=== PATIENT | male | born 1995 | race Two or more races ===

== ENCOUNTER 2021-05-01 13:51 | Emergency (ER) | payer MEDICAID, SELFPAY ==
[2021-05-01 14:41] VITALS: BP 104/78; PULSE 71; RESP 16; TEMP 36.8; O2SAT 98; BMI 19.6
[2021-05-01 15:01] LABS: IDNOW Serial# 9DD0AD1C
[2021-05-01 15:02] LABS: COVID-19 Test Positive (Negative)
--- NOTE | 2021-05-01 15:20 | ED.URI ---
HPI - URI/Sore Throat General Chief Complaint: General Medical Stated Complaint: +COVID home test Time Seen by Provider: 05/01/21 15:13 Source: patient and family Mode of arrival: ambulatory Limitations: no limitations History of Present Illness HPI Narrative: 26-year-old male presenting with URI symptoms for the past 2 days worse today. Reports that he recently traveled to [place]. Mother has similar symptoms. He is not vaccinated to COVID. Denies any other symptoms other than what is listed below. MD elicited complaint: cough and sore throat Onset (ago): day(s) (2) Consistency: constant and progressively worsening Severity: mild Description of mucous: clear, watery and yellow Able to tolerate fluids by mouth: Yes Exacerbating factors: swallowing Relieving factors: nothing Context: sick contacts (Mother has similar symptoms) Associated symptoms: chills, myalgias, headache, rhinorrhea, nasal congestion, sore throat and cough Treatments prior to arrival: none Related Data Previous Rx's Medication Instructions Recorded azithromycin 250 mg tablet See Rx Instructions .ROUTE 05/01/21 .COMPLEX #6 tab Allergies Allergy/AdvReac Type Severity Reaction Status Date / Time No Known Allergies Allergy Verified 05/01/21 15:24 Review of Systems Review of Systems: Constitutional : Positive chills/fatigue/malaise No Weight loss, No Fever, No Night Sweats ENT/Mouth : Positive sore throat/rhinorrhea/nasal congestion No Hearing loss, No Ear Pain, No Sinus Pain, No Hoarseness, No Swallowing Difficulty Eyes: No Eye Pain, No Swelling, No Redness, No Foreign Body, No Discharge, No Vision Changes Cardiovascular : No Chest Pain, No SOB, No Dyspnea on Exertion, No Orthopnea, No Edema, No Palpitations Respiratory : Positive Cough, No Sputum, No Wheezing, No Smoke Exposure, No Dyspnea Gastrointestinal : No Nausea, No Vomiting, No Diarrhea, No Constipation, No abdominal Pain, No Hematochezia, No Melena Genitourinary : no irregular bleeding, No Dysuria, No Urinary Frequency, No Hematuria, No Urinary Incontinence, No Urgency, No Flank Pain, No Urinary Flow Changes, No Hesitancy Musculoskeletal : No joint pain, positive Myalgias, No Joint Swelling Skin : No Skin Lesions, No rash Neuro : No Weakness, No Numbness, No Paresthesias, No Loss of Consciousness, No Dizziness, No Headache Psych : No Anxiety/Panic, No Depression, No SI/HI/AH/VH, No Social Issues, Heme/Lymph: No Bruising, No Bleeding,No Lymphadenopathy Endocrine : No Polyuria, No Polydipsia, No Temperature Intolerance Yes all other systems are reviewed and are negative [facility] Past Medical History Attestation statement: The following information was validated with the patient. Medical History No known health problems Social History Social History Advance Directives: No Physical Exam Vital Signs: Vital Signs: Last Vital Signs Temp 98.3 F 05/01/21 14:41 Pulse 71 05/01/21 14:41 Resp 16 05/01/21 14:41 BP 104/78 05/01/21 14:41 Pulse Ox 98 05/01/21 14:41 BMI result Body Mass Index 19.6 vital signs have been reviewed as normal and appeared to be correct. Blood pressure normal. Heart rate normal. Respiration rate normal. Temperature normal. Oxygen saturation normal. Appearance: Alert. Oriented X3. No acute distress. Head: Normal external exam. Normocephalic. Atraumatic. Eyes: PERRLA. EOMI. Conjunctiva and sclera normal. Eyelids normal. ENT: EAC normal. TM's Normal. Pharynx normal. Uvula midline. Moist mucous membranes. No trismus noted. No drooling noted. No muffled voice noted. Neck: Normal inspection. Neck supple. FROM. No adenopathy. Thyroid Normal. No meningeal signs. No neck mass noted. CVS: Normal heart rate and rhythm. Heart sound normal. Pulses normal throughout. No murmurs/rales/gallops. Respiratory: No respiratory distress. Painless inspiration. Breath sounds normal. No wheezes/rales/rhonchi noted. Chest nontender. No accessory muscle usage noted or decreased air movement noted. Back: Full range of motion noted. No rashes/lesion/induration/fluctuance or signs of infection noted. Skin: Skin warm and dry. Normal skin color. Normal skin turgor. No rashes/lesions/lacerations noted. Extremities:Extremities exhibit normal range of motion. Extremities nontender. Neuro: Oriented X 3. No motor deficit. No sensory deficit. Reflexes normal. Normal steady gait. No focal neuro deficits noted. Vascular: + radial pulses/+ 2 distal pedal pulses/+2 dorsalis pedis b/l. Normal cap refill. No cyanosis noted to upper extremity nails and lower extremity toes nails. Course Course Course Narrative: Patient positive for COVID. Will DC home with symptomatic treatment instructions to self isolate per CDC guidelines and to return if any new or worsening symptoms. Patient understands agrees with this plan. MDM - URI/Sore Throat Medical Records Attestation: I reviewed the patient's medical records. Lab Data Attestation: I reviewed the patient's lab results. Labs: Lab Results 05/01/21 Range/Units 14:44 COVID-19 ([facility]) Positive A (Negative) COVID-19 Clin Com See Note Discharge Plan Discharge Clinical Impression: COVID-19 Patient Disposition: Home, Self-Care Instructions: COVID-19 (Coronavirus Disease 2019) (ED) Additional Instructions: Patient positive for COVID. Will DC home with symptomatic treatment instructions to self isolate per CDC guidelines and to return if any new or worsening symptoms. Patient understands agrees with this plan. Prescriptions: New azithromycin 250 mg tablet See Rx Instructions .ROUTE .COMPLEX Qty: 6 RF: 0 Referrals: ED Physician,Generic [Physician] - 2 days (Your PCP) Stand Alone Forms: Work/School Release Print Language: Citizen Of [place]
== END 2021-05-01 16:06 | disposition home or self-care (01) ==
PROVIDERS: Emergency Provider Emergency Medicine
DX: U07.1 COVID-19 (principal)
CPT/HCPCS: 87635; 99282; 99283

== ENCOUNTER 2021-07-05 13:12 | Emergency (ER) | payer MEDICAID, SELFPAY ==
[2021-07-05 13:26] VITALS: BP 135/87; PULSE 95; RESP 17; TEMP 36.9; O2SAT 99; BMI 19.6
--- NOTE | 2021-07-05 13:42 | ED_ITS ---
HPI - Extremity Problem General Chief complaint: Extremity Injury, Upper Stated complaint: r hand inj at work Time Seen by Provider: 07/05/21 13:42 History of Present Illness HPI Narrative: Patient complains of pain blistering and redness to right 2nd and 3rd fingers after an injury at work last night when a nitrogen gas line came off and his gloved hand was coated with nitrogen gas and he felt like it had frozen and then it became pale for 2 hours and then returned to basically normal color He woke this morning with pain in the hand mostly in the 2nd and 3rd fingers and noticed some small blisters and redness and comes to the ER to be checked He denies any other injury Related Data Previous Rx's Medication Instructions Recorded azithromycin 250 mg tablet See Rx Instructions .ROUTE 05/01/21 .COMPLEX #6 tab acetaminophen 500 mg tablet 1,000 mg PO QID PRN #30 tab 07/05/21 ibuprofen 600 mg tablet 600 mg PO Q6H PRN #20 tab 07/05/21 oxycodone 5 mg tablet 5 mg PO Q6H PRN #20 tab 07/05/21 Allergies Allergy/AdvReac Type Severity Reaction Status Date / Time No Known Allergies Allergy Verified 05/01/21 15:24 Review of Systems Review of Systems: Positive for right 2nd and 3rd finger pain redness and blistering Negatives are no fever no chills no dizziness no weakness no headache no neck pain no chest pain no shortness of breath no difficulty breathing no weakness Yes all other systems are reviewed and are negative [facility] Past Medical History Source: nursing notes reviewed Medical History No known health problems Social History Social History Advance Directives: Yes Advance Directives Information Provided: Yes Advance Directives on File: No Physical Exam Vital Signs: Vital Signs: Last Vital Signs Temp 98.4 F 07/05/21 13:26 Pulse 95 07/05/21 13:26 Resp 17 07/05/21 13:26 BP 135/87 07/05/21 13:26 Pulse Ox 99 07/05/21 13:26 BMI result Body Mass Index 19.6 General appearance is no acute distress Head is normocephalic atraumatic Neck is supple Respiratory no distress The right hand middle and index fingers had some redness and purple on the sides of the fingers and on the distal finger, there was decreased sensation in fingertips of both 2nd and 3rd fingers, there was some limit mild limit on range of motion on flexion in 2nd and 3rd fingers due to pain There were small blisters on both fingers, no surrounding erythema no black areas Neuro the patient could feel when I touched his fingertips on the 2nd and 3rd fingers but felt was very decreased from normal compared to other fingers, motor was normal Course Course Course Narrative: Patient with frostbite on 2nd and 3rd fingers from exposure to a nitrogen gas which froze them at work when a hose broke I called Dr. coyle burn specialist at [facility] and described the wounds as well as sent her pictures and also described the decreased sensation She advised that this is likely to get better and does not need any acute treatment or transfer now She will follow virtually with the patient by phone next week, I did call [facility] was said they could see him early in the week for a wound check and I did advise the patient for any change or worse to come to the ER any time Dressing with antibiotic ointment was applied and patient was discharged Discharge Plan Discharge Clinical Impression: Frostbite Patient Disposition: Home, Self-Care Additional Instructions: I spoke to Dr. coyle specialist from the burn center at [facility] in [place] and Center pictures She advised that this level of frostbite usually gets better without serious complications she recommended off work for at least 1 week To improve circulation in the fingers she recommended use a stress ball or a tennis ball in squeeze it as often as you can throughout the day which increases finger circulation Apply [id number] antibiotic ointment to the blisters on the fingers and wrapped with a dressing You should call Dr. Coyle the specialist for a virtual appointment next week to check on the fingers the phone number is [phone] and you should call to make an appointment Call [facility] to make an appointment for wound check and follow-up Thursday or Thursday next week Return to the ER any time for any worse condition such as changes in skin color, uncontrolled pain spreading redness any sign of infection any worse condition or any concerns You got a tetanus shot today Prescriptions: New oxycodone 5 mg tablet 5 mg PO Q6H PRN (Reason: pain) Qty: 20 0RF Rx Instructions: Narcotic, no driving for 6 hours after taking acetaminophen 500 mg tablet 1,000 mg PO QID PRN (Reason: pain) Qty: 30 0RF ibuprofen 600 mg tablet 600 mg PO Q6H PRN (Reason: pain) Qty: 20 0RF No Action azithromycin 250 mg tablet See Rx Instructions .ROUTE .COMPLEX Qty: 6 0RF Rx Instructions: take 500 mg today (day 1), then 250 mg for 4 days (days 2-5) Referrals: [facility] [Provider Group] - 2 days Stand Alone Forms: Work/School Release
[2021-07-05] MEDS: Ibuprofen 600 MG TABLET PO (15:20)
[2021-07-05] MEDS: Acetaminophen 325 MG TABLET 975 MG PO (15:20)
[2021-07-05] MEDS: oxyCODONE HCl Immed Release 5 MG TABLET 10 MG PO (15:21)
[2021-07-05] MEDS: Diphth,Pertus(ACell),Tet Adult 0.5 ML SYRINGE IM (15:21)
== END 2021-07-05 15:31 | disposition home or self-care (01) ==
PROVIDERS: Emergency Provider Emergency Medicine
DX: T59.0X1A Toxic effect of nitrogen oxides, accidental (unintentional), initial encounter (principal); T33.531A Superficial frostbite of right finger(s), initial encounter; X31.XXXA Exposure to excessive natural cold, initial encounter; Y93.9 Activity, unspecified; Y92.9 Unspecified place or not applicable; Y99.0 Civilian activity done for income or pay
CPT/HCPCS: 90471; 90715; 99283; 99284